=== PATIENT | female | born 1975 | race Asian ===

== ENCOUNTER 2018-04-26 20:29 | Emergency (ER) | payer OTHER ==
[2018-04-26 20:36] VITALS: BP 160/80; PULSE 77; TEMP 98.1; BMI 25.0
--- NOTE | 2018-04-26 21:03 | PDOC ---
History of Present Illness - General Chief Complaint: Chest Pain Stated Complaint: heart burn Time Seen by Provider: 04/26/18 20:58 History Source: Patient - History of Present Illness Initial Comments: 04/26/18 20:58 42 year old female c/o midsternal chest burning up the chest to the throat with b/p higher reading than normal (140/90) x 4-5 days. reports that she has been feeling like a burn in throat and need to clear throat. denies diaphoresis , NVD , dizziness. usually for heart burn patient take pepcid and peptobismol which patient did not take during these episodes. patient reports that she had a stress test and echo 08/2017 which was normal and this was done for dyspnea on exertion. patient currently has no symptoms. Mom with history of [place] 04/26/18 21:42 Past History - Past Medical History Allergies/Adverse Reactions: Allergies Allergy/AdvReac Type Severity Reaction Status Date / Time No Known Allergies Allergy Verified 04/26/18 20:36 Home Medications: Ambulatory Orders Ranitidine HCl [Zantac] 150 mg PO BID #30 tablet 04/26/18 Asthma: Yes COPD: No - Suicide/Smoking/Psychosocial Hx Smoking History: Never smoked Have you smoked in the past 12 months: No Information on smoking cessation initiated: No Hx Alcohol Use: No Drug/Substance Use Hx: No Review of Systems - Review of Systems Able to Perform ROS?: Yes Is the patient limited Slovenian proficient: No Constitutional: No: Symptoms Reported, See HPI, Chills, Diaphoresis, Fever, Loss of Appetite, Malaise, Night Sweats, Weakness, Weight Stable, Unintentional Wgt. Loss, Unexplained wgt Loss, Other HEENTM: No: Symptoms Reported, See HPI, Eye Pain, Blurred Vision, Tearing, Recent change in vision, Double Vision, Cataracts, Ear Pain, Ocular Prothesis, Ear Discharge, Nose Pain, Nose Congestion, Tinnitus, Nose Bleeding, Hearing Loss , Throat Pain, Throat Swelling, Mouth Pain, Dental Problems, Difficulty Swallowing, Mouth Swelling, Other Respiratory: Yes: Other (no pleuritic pain). No: Symptoms reported, See HPI, Cough, Orthopnea, Shortness of Breath, SOB with Exertion, SOB at Rest, Stridor, Wheezing, Productive cough, Hemoptysis Cardiac (ROS): Yes: Chest Pain ABD/GI: Yes: Other (burning in chest ) *Physical Exam - Vital Signs Last Vital Signs Temp Pulse Resp BP Pulse Ox 98.1 F 77 18 160/80 100 04/26/18 20:34 04/26/18 20:34 04/26/18 20:34 04/26/18 20:34 04/26/18 22:45 - Physical Exam General Appearance: Yes: Appropriately Dressed Respiratory/Chest: positive: Lungs Clear, Normal Breath Sounds Cardiovascular: positive: Regular Rhythm, Regular Rate Gastrointestinal/Abdominal: positive: Normal Bowel Sounds, Tender (epigastric), Soft Musculoskeletal: positive: Normal Inspection Extremity: positive: Normal Capillary Refill, Normal Inspection, Normal Range of Motion Integumentary: positive: Normal Color, Dry, Warm Neurologic: positive: Fully Oriented, Alert, Normal Mood/Affect Heart Score/ECG Review - History History: Slightly suspicious - Electrocardiogram EKG: Normal - Age Age: </= 45 - Risk Factors Risk Factors Heart Score: Yes Positive family hx of cardiac disease Based on the list above the patient has:: 1-2 risk factors - Troponin Troponin: </= normal limit - Score Heart Score - Total: 1 - ECG Intrepretation Rhythm: Regular Rhythm Comment:: 04/26/18 21:34 NSR: 68 bpm Moderate Sedation - Procedure Monitoring Vital Signs: Procedure Monitoring Vital Signs Temperature 98.1 F 04/26/18 20:34 Pulse Rate 77 04/26/18 20:34 Respiratory Rate 18 04/26/18 20:34 Blood Pressure 160/80 04/26/18 20:34 O2 Sat by Pulse Oximetry (%) 100 04/26/18 22:45 ED Treatment Course - LABORATORY CBC & Chemistry Diagram: 04/26/18 21:21 04/26/18 21:21 - ADDITIONAL ORDERS Additional order review: Laboratory Results 04/26/18 04/26/18 04/26/18 21:21 21:21 21:21 PT with INR 11.50 INR 0.97 Sodium 137 Potassium 3.8 Chloride 103 Carbon Dioxide 27 Anion Gap 6 L BUN 15 Creatinine 0.8 Creat Clearance w eGFR > 60 Random Glucose 88 Calcium 8.8 Magnesium 2.2 Total Bilirubin 0.4 AST 19 ALT 26 Alkaline Phosphatase 72 Creatine Kinase 93 Troponin I < 0.02 Total Protein 7.9 Albumin 3.9 Serum , Qual Negative 04/26/18 21:21 RBC 5.28 H MCV 78.4 L MCHC 33.3 RDW 14.0 MPV 8.3 Neutrophils % 64.2 Lymphocytes % 26.3 Monocytes % 7.0 Eosinophils % 1.9 Basophils % 0.6 - RADIOLOGY Radiology Studies Ordered: Category Date Time Status CHEST PA & LAT [RAD] Stat Radiology 04/26/18 21:06 Taken - Medications Given in the ED: ED Medications Discontinued Medications Generic Name Dose Route Start Last Admin Trade Name Nadeem PRN Reason Stop Dose Admin Al Hydroxide/Mg Hydroxide 30 ml 04/26/18 21:16 04/26/18 21:31 Mylanta Oral Suspension - PO 04/26/18 21:17 30 ml ONCE ONE Administration Ranitidine HCl 300 mg 04/26/18 21:09 04/26/18 21:31 Zantac - PO 04/26/18 21:10 300 mg ONCE ONE Administration Medical Decision Making - Medical Decision Making 04/26/18 21:41 A: chest pain ; GERD? P: labs EKG chest xray 2. zantac maalox reevluate 04/26/18 23:10 patient feels better. will d.c home with GERD meds. 04/26/18 23:34 b/p 138/88, hrt 65 *DC/Admit/Observation/Transfer Diagnosis at time of Disposition: Chest pain Qualifiers: Chest pain type: unspecified Qualified Code(s): R07.9 - Chest pain, unspecified GERD (gastroesophageal reflux disease) Qualifiers: Esophagitis presence: esophagitis presence not specified Qualified Code(s): K21.9 - Gastro-esophageal reflux disease without esophagitis - Discharge Dispostion Disposition: HOME - Prescriptions Prescriptions: Ranitidine HCl [Zantac] 150 mg PO BID #30 tablet - Referrals Referrals: Addy Maurer MD [Staff Physician] - Call tomorrow - Patient Instructions Printed Discharge Instructions: DI for Atypical Chest Pain Additional Instructions: take zantac as prescribed. - Post Discharge Activity Forms/Work/School Notes: Back to Work
[2018-04-26] MEDS ORDERED: RANITIDINE HCL 150 MG TABLET (FP) PO ONE (21:09)
--- NOTE | 2018-04-26 21:14 | PDOC ---
*Physical Exam - Vital Signs Last Vital Signs Temp Pulse Resp BP Pulse Ox 98.1 F 77 18 160/80 100 04/26/18 20:34 04/26/18 20:34 04/26/18 20:34 04/26/18 20:34 04/26/18 20:34 Heart Score/ECG Review - History History: Slightly suspicious - Electrocardiogram EKG: Normal - Age Age: </= 45 - Risk Factors Risk Factors Heart Score: Yes Positive family hx of cardiac disease Based on the list above the patient has:: 1-2 risk factors - Troponin Troponin: </= normal limit - Score Heart Score - Total: 1 ED Treatment Course - LABORATORY CBC & Chemistry Diagram: 04/26/18 21:21 04/26/18 21:21 Medical Decision Making - Medical Decision Making 04/26/18 21:11 42 yo F h/o GERD presenting with chest burning that radiates to her throat Today she was concerned because she has noted that her BP has increased Nml stress test and ECHO 2017 Pt seen by Midlevel Provider under my direct supervision Pt interviewed and examined Ancillary studies reviewed I agree with plan as outlined by Midlevel Provider 04/26/18 23:40 Laboratory Tests 04/26/18 21:21 Creatine Kinase 93 Troponin I < 0.02 *DC/Admit/Observation/Transfer Diagnosis at time of Disposition: Chest pain, GERD (gastroesophageal reflux disease) - Discharge Dispostion Disposition: HOME - Prescriptions Prescriptions: Ranitidine HCl [Zantac] 150 mg PO BID #30 tablet - Referrals Referrals: Addy Maurer MD [Staff Physician] - Call tomorrow - Patient Instructions Printed Discharge Instructions: DI for Atypical Chest Pain Additional Instructions: take zantac as prescribed. - Post Discharge Activity Forms/Work/School Notes: Back to Work
[2018-04-26] MEDS ORDERED: MAG HYDROX/AL HYDROX/SIMETH 30 ML UNIT-DOSE CUP PO ONE (21:16)
[2018-04-26] MEDS ORDERED: MAG HYDROX/AL HYDROX/SIMETH 30 ML UNIT-DOSE CUP ONE (21:29)
[2018-04-26] MEDS ORDERED: RANITIDINE HCL 150 MG TABLET (FP) ONE (21:29)
[2018-04-26 22:02] LABS: BASO % 0.6 % (0-2.0); EOS % 1.9 % (0-4.5); HEMATOCRIT 41.4 % (32.4-45.2); HEMOGLOBIN 13.8 GM/dL (10.7-15.3); LYMPH % 26.3 % (8-40); MCH 26.1 pg (25.7-33.7); MCHC 33.3 g/dl (32.0-36.0); MEAN CELL VOLUME 78.4 fl (80-96); MEAN PLT VOLUME 8.3 fl (7.5-11.1); NEUT % 64.2 % (42.8-82.8); PLATELET COUNT 345 K/MM3 (134-434); RBC 5.28 M/mm3 (3.60-5.2); WHITE BLOOD COUNT 6.6 K/mm3 (4.0-10.0)
[2018-04-26 22:18] LABS: INR 0.97 (0.83-1.09); PROTHROMBIN TIME (PATIENT) 11.5 SEC (9.7-13.0)
[2018-04-26 22:53] LABS: ALBUMIN 3.9 g/dl (3.4-5.0); ALK PHOS 72 U/L (45-117); ANION GAP 6 MMOL/L (8-16); BILIRUBIN,TOTAL 0.4 mg/dL (0.2-1); BLOOD UREA NITROGEN 15 mg/dL (7-18); CALCIUM 8.8 mg/dL (8.5-10.1); CHLORIDE 103 mmol/L (98-107); CO2 27 mmol/L (21-32); CREATININE 0.8 mg/dL (0.55-1.3); GLUCOSE,RANDOM 88 mg/dL (74-106); MAGNESIUM 2.2 mg/dL (1.8-2.4); POTASSIUM 3.8 mmol/L (3.5-5.1); SGOT/AST 19 U/L (15-37); SGPT/ALT 26 U/L (13-61); SODIUM 137 mmol/L (136-145); TOT PROT 7.9 g/dl (6.4-8.2)
--- NOTE | 2018-04-27 12:59 | EKG ---
Test Reason : Blood Pressure : / mmHG Vent. Rate : 068 BPM Atrial Rate : 068 BPM P-R Int : 142 ms QRS Dur : 070 ms QT Int : 408 ms P-R-T Axes : -13 058 060 degrees QTc Int : 433 ms NORMAL SINUS RHYTHM NORMAL ECG NO PREVIOUS ECGS AVAILABLE Confirmed by ORLY BERG, TAVO ([id number]) on 04/27/2018 12:58:52 PM Referred By: Confirmed By:TAVO VILLALBA MD
== END 2018-04-27 00:25 | disposition home or self-care (01) ==
LOC: JER 20:29
DX: K21.9 Gastro-esophageal reflux disease without esophagitis (principal)
CPT/HCPCS: 36415; 71046-TC-FY; 80053; 82550; 83735; 84484; 84703; 85025; 85610; 93005; 93010; 99285-25